=== PATIENT | female | born 1960 | race Caucasian/White ===

== ENCOUNTER 2017-05-21 17:35 | Emergency (ER) | payer OTHER ==
[~2017-05-21] VITALS: Ht 165.1 cm; Wt 86.2 kg
--- NOTE | ~2017-05-21 | CR126 ---
[facility] A Service of [facility] & [facility] RADIOLOGY TEXT RESULTS PATIENT: JA PINK LOCATION: CFTX : 62 UNIT #: [id number] AGE: [address]: Sneha Pantoja SEX: F ORDER DR: [id number] [facility] [address] [place], [place] [address] [id number] MR#: [id number] Acc #: [id number] NAME: JA PINK. : 1960 SEX: F STUDY DATE/TIME: 05/21/2017 18:33 UNIT: [facility] ROOM: STUDY DESCRIPTION: CR Foot Complete Min 3 View Lt Attending Physician: Sneha Pantoja P.A.-C. Ordering Physician: Sneha Pantoja P.A.-C. Primary Care Physician: Blaise Kam M.D. MEDICAL IMAGING REPORT This report is preliminary unless electronic signature is present EXAM Left foot, 3 views HISTORY Left foot pain, popped blister on the heel, fell 4 days ago. FINDINGS Three views of the left foot demonstrates mild arthritic changes first MTP joint with a developing bunion. Mild hallux valgus deformity. No fracture or dislocation. Bone mineralization appears normal. Soft tissues unremarkable. IMPRESSION 1. No acute fracture deformity. 2. 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 Dictated by... Merlene English M.D. THIS IS AN ELECTRONICALLY VERIFIED REPORT Merlene English M.D. at 05/22/2017 7:37 PM REBECCA/vivienne TD: 05/22/2017 16:42 JOB #: [id number] MEDICAL IMAGING REPORT Page 1 of 1 COPY
[~2017-05-21 17:35] MED LIST: ALPRAZOLAM PO; ARISTOCORT A 0.15 GM TOP; CELEXA; CHOLESTEROL PILL; CLEOCIN PO; DIAZEPAM PO; FLEXERIL PO; FLEXERIL10 MG PO; GLUCOPHAGE XR500 MG PO; IBUPROFEN800 MG PO; KETOPROFEN PO; LISINOPRIL; MEDROL DOSEPAK4 MG PO; MEDROL4 MG/DOSE- PO; METFORMIN; METFORMIN HCL500 M1 PO; NORCO 5/325 TAB1 TAB PO; PHENERGAN25 MG PO; PREDNISONE PO; SENNA; ULTRAM PO; VICODIN PO; ZANTAC PO; ZANTAC150 M1; ZANTAC150 M1 PO
== END 2017-05-21 19:29 | disposition home or self-care (01) ==
LOC: CED 17:35 → CFTX 17:35
DX: S90.32XA Contusion of left foot, initial encounter (principal); E11.69 Type 2 diabetes mellitus with other specified complication; T14.8 Other injury of unspecified body region; E78.5 Hyperlipidemia, unspecified; Z98.51 Tubal ligation status; X58.XXXA Exposure to other specified factors, initial encounter
CPT/HCPCS: 73630; 82947; 99283